=== PATIENT | female | born 1995 | race Caucasian/White ===

== ENCOUNTER 2018-11-30 15:26 | Outpatient (CLI) | payer OTHER ==
[2018-11-30 16:08] LABS: ADD MAN DIFF? NO
[2018-11-30 16:11] LABS: WHITE BLOOD COUNT 8.9 10^3/ul (4.8-10.8)
[2018-11-30 16:11] LABS: BASOPHILS % 0.5 % (0.0-2.0); EOSINOPHILS # 0.1 10^3/ul (0.0-0.5); EOSINOPHILS % 0.6 % (0.0-7.0); HEMATOCRIT 30.2 % (37.0-47.0); HEMOGLOBIN 9.6 g/dl (12.0-16.0); LYMPHOCYTES # 1.4 10^3/ul (0.8-2.9); LYMPHOCYTES % 15.5 % (15.0-51.0); MEAN CORPUSCULAR HEMOGLOBIN 31.9 pg (29.0-33.0); MEAN CORPUSCULAR HGB CONC 31.8 g/dl (32.0-37.0); MEAN CORPUSCULAR VOLUME 100.3 fl (82.0-101.0); MEAN PLATELET VOLUME 10.5 fl (7.4-10.4); MONOCYTE # 0.6 10^3/ul (0.3-0.9); MONOCYTES % 6.3 % (0.0-11.0); NEUTROPHIL # 6.6 10^3/ul (1.6-7.5); NEUTROPHILS % 74.4 % (39.0-77.0); NUCLEATED RED BLOOD CELLS% 0.2 /100WBC (0.0-0.0); PLATELET COUNT 239 10^3/UL (140-415); RED BLOOD COUNT 3.01 10^6/ul (4.20-5.40); RED CELL DISTRIBUTION WIDTH 12.8 % (11.5-14.5)
[2018-11-30 16:23] LABS: ADD UMIC YES; UR ASCORBIC ACID NEGATIVE (NEGATIVE); UR BILIRUBIN (Dip) NEGATIVE (NEGATIVE); UR BLOOD (Dip) NEGATIVE (NEGATIVE); UR CLARITY SLIGHTLY CLOUDY (CLEAR); UR COLOR YELLOW (YELLOW); UR GLUCOSE (Dip) 2+ mg/dL (NEGATIVE); UR KETONES (Dip) NEGATIVE (NEGATIVE); UR LEUKOCYTE ESTERASE (Dip) TRACE Leu/ul (NEGATIVE); UR MUCUS FEW /HPF (NONE SEEN); UR NITRITE (Dip) NEGATIVE (NEGATIVE); UR RBC 0 /HPF (0-5); UR SPECIFIC GRAVITY (Dip) 1.018 (1.003-1.030); UR SQUAMOUS EPITHELIAL CELL FEW /HPF (FEW); UR TOTAL PROTEIN (Dip) NEGATIVE (NEGATIVE); UR UROBILINOGEN (Dip) NEGATIVE (NEGATIVE); UR WBC 4 /HPF (0-5)
[2018-11-30 16:35] LABS: ALANINE AMINOTRANSFERASE 8 IU/L (13-69); ALBUMIN 3.2 g/dl (3.3-4.9); ALBUMIN/GLOBULIN RATIO 1.14; ALKALINE PHOSPHATASE 136 IU/L (42-121); ANION GAP 7 (5-13); ASPARTATE AMINO TRANSFERASE 16 IU/L (15-46); BILIRUBIN,INDIRECT 0.2 mg/dl (0-1.1); BILIRUBIN,TOTAL 0.2 mg/dl (0.2-1.3); BLOOD UREA NITROGEN 6 mg/dl (7-20); CALCIUM 8.6 mg/dl (8.4-10.2); CARBON DIOXIDE 22 mmol/L (21-31); CHLORIDE 109 mmol/L (97-110); CREATININE 0.47 mg/dl (0.44-1.00); Estimated GFR > 60 mL/min (>60); GLUCOSE 141 mg/dl (70-220); POTASSIUM 4.3 mmol/L (3.5-5.1); SODIUM 138 mmol/L (135-144)
[2018-11-30] MEDS ORDERED: LACTATED RINGER'S 1,000 ML IV (17:30)
== END 2018-11-30 18:56 | disposition home or self-care (01) ==
LOC: OBT 15:26 → L-D 15:30 → OBT 18:56
DX: O26.893 Other specified pregnancy related conditions, third trimester (principal); Z3A.29 29 weeks gestation of pregnancy; M54.5 Low back pain; R10.30 Lower abdominal pain, unspecified
CPT/HCPCS: 76817; 76818; 80053; 81001; 85025; 96360

== ENCOUNTER 2018-12-30 22:46 | Inpatient (IN) | payer OTHER ==
[2018-12-31 00:33] LABS: ADD UMIC NO; UR ASCORBIC ACID NEGATIVE (NEGATIVE); UR BILIRUBIN (Dip) NEGATIVE (NEGATIVE); UR BLOOD (Dip) NEGATIVE (NEGATIVE); UR CLARITY CLEAR (CLEAR); UR COLOR YELLOW (YELLOW); UR GLUCOSE (Dip) NEGATIVE (NEGATIVE); UR KETONES (Dip) NEGATIVE (NEGATIVE); UR LEUKOCYTE ESTERASE (Dip) NEGATIVE Leu/ul (NEGATIVE); UR NITRITE (Dip) NEGATIVE (NEGATIVE); UR SPECIFIC GRAVITY (Dip) 1.013 (1.003-1.030); UR TOTAL PROTEIN (Dip) NEGATIVE (NEGATIVE); UR UROBILINOGEN (Dip) NEGATIVE (NEGATIVE)
[2018-12-31] MEDS: TERBUTALINE 1 MG/ML INJ SC (02:06)
[2018-12-31] MEDS: MAGNESIUM SULFATE 4 GM/100 ML 100 ML IV (02:30)
[2018-12-31] MEDS: BETAMET NA PHOS/AC(6 MG/ML) 2 ML INJ SYG IM (02:32)
[2018-12-31] MEDS: LACTATED RINGER'S 1,000 ML IV ×4 (02:32→19:00)
[2018-12-31 02:33] LABS: ADD MAN DIFF? NO
[2018-12-31 02:35] LABS: BASOPHILS % 0.4 % (0.0-2.0); EOSINOPHILS # 0.1 10^3/ul (0.0-0.5); EOSINOPHILS % 0.9 % (0.0-7.0); HEMATOCRIT 30.6 % (37.0-47.0); HEMOGLOBIN 9.8 g/dl (12.0-16.0); LYMPHOCYTES # 2.1 10^3/ul (0.8-2.9); LYMPHOCYTES % 19.6 % (15.0-51.0); MEAN CORPUSCULAR HEMOGLOBIN 30.2 pg (29.0-33.0); MEAN CORPUSCULAR VOLUME 94.2 fl (82.0-101.0); MEAN PLATELET VOLUME 11.3 fl (7.4-10.4); MONOCYTE # 0.6 10^3/ul (0.3-0.9); MONOCYTES % 5.9 % (0.0-11.0); NEUTROPHIL # 7.6 10^3/ul (1.6-7.5); NEUTROPHILS % 71.4 % (39.0-77.0); NUCLEATED RED BLOOD CELLS # 0.1 10^3/ul (0.0-0.0); NUCLEATED RED BLOOD CELLS% 0.5 /100WBC (0.0-0.0); PLATELET COUNT 270 10^3/UL (140-415); RED BLOOD COUNT 3.25 10^6/ul (4.20-5.40); RED CELL DISTRIBUTION WIDTH 13.9 % (11.5-14.5)
[2018-12-31 02:35] LABS: WHITE BLOOD COUNT 10.6 10^3/ul (4.8-10.8)
[2018-12-31 02:53] LABS: ALANINE AMINOTRANSFERASE 10 IU/L (13-69); ALBUMIN 3.4 g/dl (3.3-4.9); ALBUMIN/GLOBULIN RATIO 1.03; ALKALINE PHOSPHATASE 220 IU/L (42-121); ANION GAP 8 (5-13); ASPARTATE AMINO TRANSFERASE 20 IU/L (15-46); BILIRUBIN,INDIRECT 0.3 mg/dl (0-1.1); BILIRUBIN,TOTAL 0.3 mg/dl (0.2-1.3); BLOOD UREA NITROGEN 5 mg/dl (7-20); CALCIUM 9.9 mg/dl (8.4-10.2); CARBON DIOXIDE 20 mmol/L (21-31); CHLORIDE 109 mmol/L (97-110); CREATININE 0.46 mg/dl (0.44-1.00); Estimated GFR > 60 mL/min (>60); GLUCOSE 85 mg/dl (70-220); POTASSIUM 3.6 mmol/L (3.5-5.1); SODIUM 137 mmol/L (135-144); TOTAL PROTEIN 6.7 g/dl (6.1-8.1)
[2018-12-31 02:55] LABS: INR 0.85; PROTIME 11.7 Sec (11.9-14.9); PT RATIO 0.9
[2018-12-31 02:56] LABS: PARTIAL THROMBOPLASTIN TIME 25.2 Sec (23.0-35.0)
[2018-12-31] MEDS: MAGNESIUM SULFATE 20 GM/500 ML 500 ML IV ×2 (03:00→10:00)
[2018-12-31] MEDS: ACCU-CHEK XX ×6 (07:30→20:05)
[2018-12-31] MEDS: MAGNESIUM SULFATE 4 GM/100 ML 100 ML IVPB (09:28)
[2018-12-31] MEDS: FERROUS SULFATE (EC) 325 MG TAB PO ×3 (10:34→21:13)
[2018-12-31] MEDS: PRENATAL VITAMIN PO (10:35)
[2018-12-31] MEDS ORDERED: DEXTROSE 50% 50 ML SYRINGE IV ×2 (13:00)
[2018-12-31] MEDS ORDERED: GLUCOSE GEL 15 GRAM TUBE BUCCAL (13:00)
[2018-12-31] MEDS ORDERED: GLUCAGON 1 MG INJ IM (13:00)
[2018-12-31] MEDS ORDERED: GLUCOSE GEL 15 GRAM TUBE PO ×2 (13:00)
[2018-12-31] MEDS: AMPICILLIN 2 GM/NS (PMX) 100 ML IVPB (13:43)
[2018-12-31] MEDS: INSULIN ASPART [NOVOLOG] 3 ML PEN SC ×2 (13:51→18:05)
[2018-12-31 14:01] LABS: HEMOGLOBIN A1C 5.9 % (0-5.9)
[2018-12-31 14:04] LABS: MAGNESIUM 4.6 mg/dl (1.7-2.5)
[2018-12-31] MEDS: AMPICILLIN 1 GM/NS (PMX) 50 ML IVPB ×2 (18:19→21:51)
[2018-12-31] MEDS ORDERED: INSULIN ASPART [NOVOLOG] 3 ML PEN SC (21:00)
[2018-12-31] MEDS ORDERED: ACETAMINOPHEN 325 MG TAB PO (21:30)
[2018-12-31] MEDS: ACETAMINOPHEN 325 MG TAB PO (21:33)
[2019-01-01] MEDS: LACTATED RINGER'S 1,000 ML IV ×2 (00:42→07:55)
[2019-01-01] MEDS: AMPICILLIN 1 GM/NS (PMX) 50 ML IVPB ×3 (01:51→09:32)
[2019-01-01] MEDS: ACETAMINOPHEN 325 MG TAB PO (01:51)
[2019-01-01] MEDS: BETAMET NA PHOS/AC(6 MG/ML) 2 ML INJ SYG IM (02:42)
[2019-01-01] MEDS ORDERED: INSULIN ASPART [NOVOLOG] 3 ML PEN SC (07:30)
[2019-01-01] MEDS: ACCU-CHEK XX (07:48)
[2019-01-01] MEDS: PRENATAL VITAMIN PO (09:32)
[2019-01-01] MEDS: FERROUS SULFATE (EC) 325 MG TAB PO (09:32)
[2019-01-01] MEDS: INSULIN ASPART [NOVOLOG] 3 ML PEN SC (12:24)
== END 2019-01-01 13:18 | disposition home or self-care (01) | DRG 833 ==
LOC: OBT 22:46 → L-D 22:47 → PP1 12-31 01:39
PROC: 4A1HXCZ Monitoring of Products of Conception, Cardiac Rate, External Approach (ICD-10-PCS; principal; 2018-12-31)
DX: O60.03 Preterm labor without delivery, third trimester (principal); O24.410 Gestational diabetes mellitus in pregnancy, diet controlled; O36.63X0 Maternal care for excessive fetal growth, third trimester, not applicable or unspecified; Z3A.33 33 weeks gestation of pregnancy
CPT/HCPCS: 76815; 76817; 76818; 80053; 81003; 82962; 83036; 83735; 85025; 85610; 85730; 86850; 86900; 86901

== ENCOUNTER 2019-01-23 23:28 | Outpatient (CLI) | payer OTHER ==
[2019-01-24 00:39] LABS: ADD MAN DIFF? NO
[2019-01-24 00:42] LABS: BASOPHILS % 0.5 % (0.0-2.0); EOSINOPHILS # 0.1 10^3/ul (0.0-0.5); HEMOGLOBIN 10.5 g/dl (12.0-16.0); LYMPHOCYTES # 1.5 10^3/ul (0.8-2.9); LYMPHOCYTES % 18.9 % (15.0-51.0); MEAN CORPUSCULAR HEMOGLOBIN 31.4 pg (29.0-33.0); MEAN CORPUSCULAR HGB CONC 31.8 g/dl (32.0-37.0); MEAN CORPUSCULAR VOLUME 98.8 fl (82.0-101.0); MONOCYTE # 0.5 10^3/ul (0.3-0.9); MONOCYTES % 6.9 % (0.0-11.0); NEUTROPHIL # 5.6 10^3/ul (1.6-7.5); NEUTROPHILS % 71.9 % (39.0-77.0); PLATELET COUNT 213 10^3/UL (140-415); RED BLOOD COUNT 3.34 10^6/ul (4.20-5.40); RED CELL DISTRIBUTION WIDTH 18.5 % (11.5-14.5)
[2019-01-24 00:42] LABS: WHITE BLOOD COUNT 7.8 10^3/ul (4.8-10.8)
[2019-01-24 00:46] LABS: ADD UMIC YES; UR ASCORBIC ACID 20 mg/dL (NEGATIVE); UR BILIRUBIN (Dip) NEGATIVE (NEGATIVE); UR BLOOD (Dip) NEGATIVE (NEGATIVE); UR CLARITY SLIGHTLY CLOUDY (CLEAR); UR COLOR YELLOW (YELLOW); UR GLUCOSE (Dip) NEGATIVE (NEGATIVE); UR KETONES (Dip) NEGATIVE (NEGATIVE); UR LEUKOCYTE ESTERASE (Dip) NEGATIVE Leu/ul (NEGATIVE); UR NITRITE (Dip) NEGATIVE (NEGATIVE); UR RBC 1 /HPF (0-5); UR SPECIFIC GRAVITY (Dip) 1.023 (1.003-1.030); UR SQUAMOUS EPITHELIAL CELL FEW /HPF (FEW); UR TOTAL PROTEIN (Dip) 1+ mg/dl (NEGATIVE); UR UROBILINOGEN (Dip) NEGATIVE (NEGATIVE); UR WBC 9 /HPF (0-5)
[2019-01-24 01:01] LABS: ALANINE AMINOTRANSFERASE 9 IU/L (13-69); ALBUMIN 3.2 g/dl (3.3-4.9); ALKALINE PHOSPHATASE 192 IU/L (42-121); ANION GAP 8 (5-13); ASPARTATE AMINO TRANSFERASE 20 IU/L (15-46); BILIRUBIN,INDIRECT 0.4 mg/dl (0-1.1); BILIRUBIN,TOTAL 0.4 mg/dl (0.2-1.3); BLOOD UREA NITROGEN 9 mg/dl (7-20); CALCIUM 9.2 mg/dl (8.4-10.2); CARBON DIOXIDE 20 mmol/L (21-31); CHLORIDE 111 mmol/L (97-110); Estimated GFR > 60 mL/min (>60); GLUCOSE 116 mg/dl (70-220); POTASSIUM 3.6 mmol/L (3.5-5.1); SODIUM 139 mmol/L (135-144); TOTAL PROTEIN 6.1 g/dl (6.1-8.1)
== END 2019-01-24 02:45 | disposition home or self-care (01) ==
LOC: OBT 23:28 → L-D 23:28
DX: O47.1 False labor at or after 37 completed weeks of gestation (principal); Z3A.37 37 weeks gestation of pregnancy
CPT/HCPCS: 76815; 76818; 80053; 81001; 85025; 87086

== ENCOUNTER 2019-02-04 09:41 | Inpatient (IN) | payer OTHER ==
[~2019-02-04 09:41] MED LIST: PROPOFOL 200 MG INJ
[2019-02-04] MEDS ORDERED: BUTORPHANOL 2 MG INJ IV (11:00)
[2019-02-04] MEDS ORDERED: OXYTOCIN 30 UNITS/LR 500 ML IV ×3 (11:00→20:50)
[2019-02-04] MEDS ORDERED: METHYLERGONOVINE 0.2 MG INJ IM (11:00)
[2019-02-04] MEDS ORDERED: MISOPROSTOL 200 MCG TAB PR (11:00)
[2019-02-04] MEDS ORDERED: CARBOPROST 250 MCG INJ IM (11:00)
[2019-02-04] MEDS ORDERED: LIDOCAINE 1% (MPF) 30 ML INJ INJ (11:00)
[2019-02-04] MEDS: LACTATED RINGER'S 1,000 ML IV ×2 (11:44→19:41)
[2019-02-04 12:05] LABS: ADD MAN DIFF? NO
[2019-02-04] MEDS: AMPICILLIN 2 GM/NS (PMX) 100 ML IV (12:11)
[2019-02-04 12:14] LABS: BASOPHILS % 0.5 % (0.0-2.0); EOSINOPHILS # 0.1 10^3/ul (0.0-0.5); EOSINOPHILS % 0.6 % (0.0-7.0); HEMATOCRIT 33.2 % (37.0-47.0); HEMOGLOBIN 10.4 g/dl (12.0-16.0); LYMPHOCYTES # 1.2 10^3/ul (0.8-2.9); LYMPHOCYTES % 14.8 % (15.0-51.0); MEAN CORPUSCULAR HEMOGLOBIN 30.4 pg (29.0-33.0); MEAN CORPUSCULAR HGB CONC 31.3 g/dl (32.0-37.0); MEAN CORPUSCULAR VOLUME 97.1 fl (82.0-101.0); MEAN PLATELET VOLUME 12.7 fl (7.4-10.4); MONOCYTE # 0.5 10^3/ul (0.3-0.9); MONOCYTES % 5.5 % (0.0-11.0); NEUTROPHIL # 6.5 10^3/ul (1.6-7.5); NEUTROPHILS % 77.6 % (39.0-77.0); NUCLEATED RED BLOOD CELLS% 0.4 /100WBC (0.0-0.0); PLATELET COUNT 205 10^3/UL (140-415); RED BLOOD COUNT 3.42 10^6/ul (4.20-5.40); RED CELL DISTRIBUTION WIDTH 17.8 % (11.5-14.5)
[2019-02-04 12:14] LABS: WHITE BLOOD COUNT 8.4 10^3/ul (4.8-10.8)
[2019-02-04 12:27] LABS: GLUCOSE 101 mg/dl (70-220)
[2019-02-04 12:29] LABS: INR 0.89; PARTIAL THROMBOPLASTIN TIME 24.2 Sec (23.0-35.0); PROTIME 12.1 Sec (11.9-14.9); PT RATIO 0.9
[2019-02-04 12:58] LABS: HEPATITIS B SURFACE ANTIGEN NEGATIVE (NEGATIVE)
[2019-02-04 14:56] LABS: RAPID PLASMA REAGIN NONREACTIVE (NR)
[2019-02-04] MEDS: AMPICILLIN 1 GM/NS (PMX) 50 ML IV ×2 (16:35→22:20)
[2019-02-04] MEDS: BUTORPHANOL 2 MG INJ IV (16:45)
[2019-02-04] MEDS: CEFAZOLIN 2 GM/50 ML (PMX) 50 ML IVPB (19:42)
[2019-02-04] MEDS: AZITHROMYCIN 500MG/NS (PMX) 250 ML IVPB (20:00)
[2019-02-04] MEDS ORDERED: FENTAnyl 50 MCG/ML VIAL ×2 (20:20→21:23)
[2019-02-04] MEDS ORDERED: morphine SULFATE/PF (10 MG/10 ML) INJ (20:21)
[2019-02-04] MEDS ORDERED: ONDANSETRON 4 MG INJ IV (20:30)
[2019-02-04] MEDS ORDERED: NALOXONE (0.4 MG/ML) INJ IV (20:30)
[2019-02-04] MEDS ORDERED: HYDROmorphONE 0.5 MG/0.5 ML SYG IV ×2 (20:30)
[2019-02-04] MEDS ORDERED: ZOLPIDEM 5 MG TAB PO (20:30)
[2019-02-04] MEDS ORDERED: DIPHENHYDRAMINE 50 MG INJ (20:33)
[2019-02-04] MEDS ORDERED: ONDANSETRON 4 MG INJ (20:33)
[2019-02-04] MEDS ORDERED: DEXAMETHASONE 4 MG/ML 1 ML INJ (20:33)
[2019-02-04] MEDS ORDERED: PHENYLephrine (100 MCG/ML) 10ML SYG ×2 (21:03→21:04)
[2019-02-04] MEDS ORDERED: LIDOCAINE 2% (SDV) 5 ML INJ (21:04)
[2019-02-04] MEDS ORDERED: MIDAZOLAM 1 MG/ML 2 ML INJ (21:23)
[2019-02-04] MEDS: OXYTOCIN 30 UNITS/LR 500 ML IV (23:14)
[2019-02-04] MEDS: DIPHENHYDRAMINE 50 MG INJ IV (23:15)
[2019-02-05] MEDS: AMPICILLIN 1 GM/NS (PMX) 50 ML IV
[2019-02-05] MEDS: DEXTROSE 5%-LR 1,000 ML IV ×3 (01:44→17:44)
[2019-02-05] MEDS ORDERED: CARBOPROST 250 MCG INJ IM (02:00)
[2019-02-05] MEDS ORDERED: MISOPROSTOL 200 MCG TAB PR (02:00)
[2019-02-05] MEDS ORDERED: METHYLERGONOVINE 0.2 MG INJ IM (02:00)
[2019-02-05] MEDS ORDERED: OXYTOCIN 30 UNITS/LR 500 ML IV (02:00)
[2019-02-05] MEDS ORDERED: METHYLERGONOVINE 0.2 MG TAB PO (02:00)
[2019-02-05] MEDS: KETOROLAC 30 MG INJ IV ×3 (02:08→17:51)
[2019-02-05] MEDS: OXYTOCIN 30 UNITS/LR 500 ML IV (03:33)
[2019-02-05] MEDS: SENNA/DOCUSATE NA (8.6MG/50MG) TAB PO ×2 (09:34→21:07)
[2019-02-05] MEDS: LANOLIN HPA 1 PKT TOP (17:51)
[2019-02-05] MEDS: IBUPROFEN 800 MG TAB PO (23:28)
[2019-02-06] MEDS: MAGNESIUM HYDROXIDE 30ML CUP PO (04:48)
[2019-02-06] MEDS: HYDROCODONE/APAP (5/325) TAB PO ×5 (04:48→23:28)
[2019-02-06] MEDS: IBUPROFEN 800 MG TAB PO ×3 (06:03→15:45)
[2019-02-06 06:52] LABS: ADD MAN DIFF? NO
[2019-02-06 06:57] LABS: WHITE BLOOD COUNT 8.9 10^3/ul (4.8-10.8)
[2019-02-06 06:57] LABS: BASOPHILS % 0.4 % (0.0-2.0); EOSINOPHILS % 0.4 % (0.0-7.0); HEMATOCRIT 27.6 % (37.0-47.0); HEMOGLOBIN 8.5 g/dl (12.0-16.0); LYMPHOCYTES # 1.9 10^3/ul (0.8-2.9); LYMPHOCYTES % 20.7 % (15.0-51.0); MEAN CORPUSCULAR HEMOGLOBIN 29.8 pg (29.0-33.0); MEAN CORPUSCULAR HGB CONC 30.8 g/dl (32.0-37.0); MEAN CORPUSCULAR VOLUME 96.8 fl (82.0-101.0); MEAN PLATELET VOLUME 11.5 fl (7.4-10.4); MONOCYTE # 0.5 10^3/ul (0.3-0.9); MONOCYTES % 5.7 % (0.0-11.0); NEUTROPHIL # 6.4 10^3/ul (1.6-7.5); NEUTROPHILS % 71.9 % (39.0-77.0); NUCLEATED RED BLOOD CELLS% 0.2 /100WBC (0.0-0.0); PLATELET COUNT 160 10^3/UL (140-415); RED BLOOD COUNT 2.85 10^6/ul (4.20-5.40); RED CELL DISTRIBUTION WIDTH 18.2 % (11.5-14.5)
[2019-02-06] MEDS: SENNA/DOCUSATE NA (8.6MG/50MG) TAB PO ×2 (09:32→20:44)
[2019-02-06] MEDS ORDERED: HYDROCODONE/APAP (5/325) TAB PO (11:00)
[2019-02-06] MEDS ORDERED: DIPHTH/TET/ACEL PERTUSS (ADULT) 0.5 ML VIAL IM* (11:00)
[2019-02-06] MEDS: LANOLIN HPA 1 PKT TOP (11:19)
[2019-02-07] MEDS: HYDROCODONE/APAP (5/325) TAB PO ×4 (03:08→13:57)
[2019-02-07] MEDS: IBUPROFEN 800 MG TAB PO ×2 (06:32→13:57)
[2019-02-07] MEDS: SENNA/DOCUSATE NA (8.6MG/50MG) TAB PO (09:32)
[2019-02-07] MEDS: MAGNESIUM HYDROXIDE 30ML CUP PO (11:07)
[2019-02-07] MEDS: DIPHTH/TET/ACEL PERTUSS (ADULT) 0.5 ML VIAL IM* (12:08)
[2019-02-07] MEDS: MEASLES,MUMPS,RUBELLA VACCINE INJ SC* (12:10)
[2019-02-08] MEDS ORDERED: MEASLES,MUMPS,RUBELLA VACCINE INJ SC* (09:00)
[2019-02-08] MEDS ORDERED: DIPHTH/TET/ACEL PERTUSS (ADULT) 0.5 ML VIAL IM* (09:00)
== END 2019-02-07 15:55 | disposition home or self-care (01) | DRG 788 ==
LOC: OBT 09:41 → PP1 02-05 01:22 → L-D 09:42 → OBT 10:35 → L-D 10:52
PROVIDERS: Obstetrics & Gynecology
PROC: 10D00Z1 Extraction of Products of Conception, Low, Open Approach (ICD-10-PCS; principal; 2019-02-05)
DX: O36.63X0 Maternal care for excessive fetal growth, third trimester, not applicable or unspecified (principal); Z3A.39 39 weeks gestation of pregnancy; Z37.0 Single live birth
CPT/HCPCS: 76815; 82947; 85025; 85610; 85730; 86592; 86850; 86900; 86901; 87340; 90715; 99464

== ENCOUNTER 2019-02-11 16:14 | Emergency (ER) | payer OTHER ==
[2019-02-11] MEDS: DIPHENHYDRAMINE 25 MG CAP PO (17:59)
== END 2019-02-11 18:22 | disposition home or self-care (01) ==
LOC: FTE 16:14
DX: L23.9 Allergic contact dermatitis, unspecified cause (principal)
CPT/HCPCS: 99282; Z7502

== ENCOUNTER 2019-03-10 11:17 | Emergency (ER) | payer OTHER | END 2019-03-10 14:05 | disposition home or self-care (01) | LOC: FTE 14:05 | DX: M77.8 Other enthesopathies, not elsewhere classified (principal) | CPT/HCPCS: 29125; 73110-RT; 99283-25 ==

== ENCOUNTER 2019-04-03 23:45 | Emergency (ER) | payer OTHER ==
[2019-04-04 03:01] LABS: ADD MAN DIFF? NO
[2019-04-04 03:02] LABS: BASOPHILS % 0.6 % (0.0-2.0); EOSINOPHILS % 2.2 % (0.0-7.0); HEMATOCRIT 36.7 % (37.0-47.0); HEMOGLOBIN 11.8 g/dl (12.0-16.0); LYMPHOCYTES # 1.4 10^3/ul (0.8-2.9); LYMPHOCYTES % 17.4 % (15.0-51.0); MEAN CORPUSCULAR HEMOGLOBIN 30.6 pg (29.0-33.0); MEAN CORPUSCULAR HGB CONC 32.2 g/dl (32.0-37.0); MEAN CORPUSCULAR VOLUME 95.3 fl (82.0-101.0); MEAN PLATELET VOLUME 10.8 fl (7.4-10.4); MONOCYTE # 0.7 10^3/ul (0.3-0.9); MONOCYTES % 8.2 % (0.0-11.0); NEUTROPHIL # 5.7 10^3/ul (1.6-7.5); NEUTROPHILS % 71.4 % (39.0-77.0); PLATELET COUNT 207 10^3/UL (140-415); RED BLOOD COUNT 3.85 10^6/ul (4.20-5.40); RED CELL DISTRIBUTION WIDTH 13.6 % (11.5-14.5)
[2019-04-04 03:03] LABS: BASOPHIL # 0.1 10^3/ul (0.0-0.1); EOSINOPHILS # 0.2 10^3/ul (0.0-0.5)
[2019-04-04] MEDS: SOD CHLORIDE 0.9% 1,000 ML IV (03:08)
[2019-04-04] MEDS: KETOROLAC 30 MG INJ IV (03:09)
[2019-04-04 03:11] LABS: ADD UMIC NO; UR ASCORBIC ACID NEGATIVE (NEGATIVE); UR BILIRUBIN (Dip) NEGATIVE (NEGATIVE); UR BLOOD (Dip) NEGATIVE (NEGATIVE); UR CLARITY CLEAR (CLEAR); UR COLOR COLORLESS (YELLOW); UR GLUCOSE (Dip) NEGATIVE (NEGATIVE); UR KETONES (Dip) NEGATIVE (NEGATIVE); UR LEUKOCYTE ESTERASE (Dip) NEGATIVE Leu/ul (NEGATIVE); UR NITRITE (Dip) NEGATIVE (NEGATIVE); UR SPECIFIC GRAVITY (Dip) 1.003 (1.003-1.030); UR TOTAL PROTEIN (Dip) NEGATIVE (NEGATIVE); UR UROBILINOGEN (Dip) NEGATIVE (NEGATIVE)
[2019-04-04 03:20] LABS: ALANINE AMINOTRANSFERASE 95 IU/L (13-69); ALBUMIN 4.2 g/dl (3.3-4.9); ALBUMIN/GLOBULIN RATIO 1.27; ALKALINE PHOSPHATASE 116 IU/L (42-121); ANION GAP 9 (5-13); ASPARTATE AMINO TRANSFERASE 80 IU/L (15-46); BILIRUBIN,INDIRECT 0.5 mg/dl (0-1.1); BILIRUBIN,TOTAL 0.5 mg/dl (0.2-1.3); BLOOD UREA NITROGEN 6 mg/dl (7-20); CALCIUM 8.9 mg/dl (8.4-10.2); CARBON DIOXIDE 24 mmol/L (21-31); CHLORIDE 108 mmol/L (97-110); CREATININE 0.65 mg/dl (0.44-1.00); Estimated GFR > 60 mL/min (>60); GLUCOSE 97 mg/dl (70-220); LIPASE 49 U/L (23-300); POTASSIUM 3.8 mmol/L (3.5-5.1); SODIUM 141 mmol/L (135-144); TOTAL PROTEIN 7.5 g/dl (6.1-8.1)
[2019-04-04] MEDS: CEFTRIAXONE 1 GM/50 ML (PMX) 50 ML IVPB (06:28)
== END 2019-04-04 06:55 | disposition home or self-care (01) ==
LOC: FTE 04-04 06:55
DX: N64.4 Mastodynia (principal); R10.9 Unspecified abdominal pain
CPT/HCPCS: 36415; 71045; 74176; 76856; 80053; 81003; 81025; 83690; 85025; 87086; 96365; 96375; 99285-25